=== PATIENT | male | born 1960 ===

== ENCOUNTER 2018-04-13 06:04 | Emergency (ER) | payer SELFPAY ==
[2018-04-13] MEDS ORDERED: Ketorolac INJ* 30 MG/ML 1 ML VIAL IV PUSH ONE (06:19)
[2018-04-13] MEDS ORDERED: Ondansetron INJ* 2 MG/ML VIAL IV ONE (06:19)
[2018-04-13] MEDS ORDERED: Morphine INJ* 2 MG/ML 1 ML SYRINGE (TWO MG - NEW SYRINGE VERSION) IV ONE (06:19)
[2018-04-13] MEDS ORDERED: NS 0.9% 1000 ML* 1,000 ML IV ONE ×2 (06:23→07:56)
--- NOTE | 2018-04-13 06:23 | ED ---
Abdominal Pain/Male - HPI Summary HPI Summary: Pt. is a 58 y.o male who presents to the ER for right flank and lower abd. pain that started acutely this morning. Pain is intermittently and severe. Sharp in nature. Pt. denies CP, SOB, fever, vomiting. Notes dark urine. Pt. states he has passed a kidney stone in the past and pain feels similar. Past medical history of hepatitis. Symptoms are moderate in severity. No current modifying factors. - History of Current Complaint Chief Complaint: EDAbdPain Stated Complaint: ABD PAIN Time Seen by Provider: 04/13/18 06:12 Hx Obtained From: Patient Pain Intensity: 8 - Allergies/Home Medications Allergies/Adverse Reactions: Allergies Allergy/AdvReac Type Severity Reaction Status Date / Time No Known Allergies Allergy Verified 04/13/18 07:21 PMH/Surg Hx/FS Hx/Imm Hx Previously Healthy: Yes Infectious Disease History: No Infectious Disease History: Denies: Traveled Outside the [place] in Last 30 Days - Family History Known Family History: Positive: Other - Noncontributory - Social History Occupation: Unemployed Lives: Alone Substance Use Type: Reports: None Review of Systems Constitutional: Negative Negative: Fever, Chills Cardiovascular: Negative Respiratory: Negative Positive: Abdominal Pain. Negative: Vomiting, Diarrhea, Nausea Positive: flank pain. Negative: dysuria All Other Systems Reviewed And Are Negative: Yes Physical Exam Triage Information Reviewed: Yes Vital Signs On Initial Exam: Initial Vitals Temp Pulse Resp BP Pulse Ox 97.5 F 50 20 130/85 100 04/13/18 06:05 04/13/18 06:05 04/13/18 06:05 04/13/18 06:05 04/13/18 06:05 Vital Signs Reviewed: Yes Appearance: Positive: Pain Distress - Pt. lying on stretcher moaning in pain. Nontoxic. Skin: Positive: Warm, Dry Head/Face: Positive: Normal Head/Face Inspection Eyes: Positive: Normal, EOMI Neck: Positive: Supple Abdomen Description: Positive: Nontender, Soft, Other: - Right CVA tenderness Neurological: Positive: Normal, CN Intact II-III Psychiatric: Positive: Affect/Mood Appropriate Diagnostics - Vital Signs Vital Signs Temp Pulse Resp BP Pulse Ox 04/13/18 06:05 97.5 F 50 20 130/85 100 - Laboratory Result Diagrams: 04/13/18 06:29 04/13/18 06:29 Lab Statement: Any lab studies that have been ordered have been reviewed, and results considered in the medical decision making process. Abdominal Pain Fem Course/Dx - Course Course Of Treatment: Pt. presenting for acute onset right flank pain. Suspect urolithiasis. He is afebrile with stable vital signs. Will start on IV fluids and pain medicine. Labs and CT scan ordered. 0710: After CT scan pt. pain increased and he notes initially pain medication did not help that much. 1mg of iv dilaudid was ordered. Pt.'s O2 saturation is drop and he was placed on 2L NC and it improved. Pt. has remained awake, alert and talking. IMPRESSION: CT read per radiology: 1. THERE IS A 3 X 5 MM CALCULUS PRESENT IN THE PROXIMAL RIGHT URETER CAUSING MODERATE. HYDRONEPHROSIS. THERE ARE MULTIPLE ADDITIONAL SMALL BILATERAL RENAL CALCULI. 2. BILATERAL SPONDYLOLYSIS AT THE L5 LEVEL AND GRADE 1 ANTERIOR SPONDYLOLISTHESIS AT THE. L5-S1 LEVEL. Labs and urine are unremarkable other than milldy elevated glucose and RBCs in urine. Results were discussed with pt. He continues to have 6/10 pain. I did touch base with pt.'s urology, Dr. Santiago, who states they typically do not place stent for 5mm stone and recommended trying to control pt.'s pain and if not improving he could evaluate. Plan discussed with pt. He agrees to try oral pain medication and attempt to go home for outp. urology f.u. MAIL RIDER reviewed and no red flags noted. Rx for flomax, percocet and zofran sent. Pt. to increased fluids, strain urine, call urology for f.u apt. To return to ER for uncontrollable pain, vomiting ,fever, or if concerned. Pt. understands and agrees with plan. He was dc home stable with sister. VS have returned to baseline. - Diagnoses Differential Diagnosis/HQI/PQRI: Appendicitis, Gall Bladder Disease, Hepatitis, Renal Colic, Ureteral Stone, Urinary Tract Infection Provider Diagnoses: Hydronephrosis, Urolithiasis Discharge - Sign-Out/Discharge Documenting (check all that apply): Patient Departure - Discharge Plan Condition: Good Disposition: HOME Prescriptions: Ondansetron TAB* [Zofran 4 MG Tab*] 4 mg PO Q6H PRN #12 tab PRN Reason: Nausea oxyCODONE/Acetamin 5/325 MG* [Percocet 5/325 TAB*] 1 tab PO Q6H PRN #12 tab MDD 4tablets PRN Reason: Pain Tamsulosin CAP* [Flomax CAP*] 0.4 mg PO DAILY #5 cap Patient Education Materials: Kidney Stones (ED) Referrals: No Primary Care Phys,NOPCP [Primary Care Provider] - Tristan Santiago MD [Medical Doctor] - Additional Instructions: Schedule a follow up appointment with Dr. Santiago Increase fluids Medication as directed Strain urine Return to ER for uncontrollable pain, vomiting, fever, or if concerned - Billing Disposition and Condition Condition: GOOD Disposition: Home
[2018-04-13 06:36] LABS: ABS Basophils 0.1 10^3/ul (0-0.2); ABS Eosinophils 0.1 10^3/ul (0-0.6); ABS Lymphocytes 2.2 10^3/ul (1.0-4.8); ABS Monocytes 0.5 10^3/ul (0-0.8); ABS Neutrophils 3.1 10^3/ul (1.5-7.7); ABS Nucleated RBC 0 10^3/ul; Hematocrit 41 % (42-52); Hemoglobin 14.1 g/dl (14.0-18.0); Lymphocyte % 36.4 % (25-47); Mean Corpuscular HGB Conc 34 g/dl (31-36); Mean Corpuscular Hemoglobin 30 pg (27-31); Mean Corpuscular Volume 87 fL (80-94); Nucleated Red Blood Cells % 0.1; Platelet Count 189 10^3/ul (150-450); Red Blood Count 4.72 10^6/ul (4.00-5.40); Red Cell Distribution Width 13 % (10.5-15)
[2018-04-13 06:55] LABS: EGFR Non-African American 80.5 (>60)
[2018-04-13] MEDS ORDERED: HYDROmorphone INJ* 2 MG/ML CARPUJECT SYRINGE IV SLOW PU ONE (07:09)
--- NOTE | 2018-04-13 07:39 | RAD ---
INDICATION: Right flank abdominal pain. COMPARISON: There are no relevant prior studies available for comparison. TECHNIQUE: A CT scan of the abdomen and pelvis was performed without intravenous and without oral contrast. Contiguous axial sections were obtained from the lung bases through the symphysis pubis. Images were reconstructed in the coronal and sagittal planes. FINDINGS: LUNGS: There is mild dependent bilateral lower lobe subsegmental atelectasis. No pleural effusion is present. LIVER: The liver is normal in size. No significant focal abnormality is seen on this noncontrast study. GALLBLADDER: No calcified gallstones are seen. BILE DUCTS: No intra or extrahepatic ductal distention is seen. SPLEEN: The spleen is normal in size without significant focal abnormality. PANCREAS: The pancreas is normal in size. No ductal distention or calcifications are seen. ADRENAL GLANDS: The adrenal glands are normal in size. KIDNEYS: The kidneys are normal in size. There are multiple bilateral renal calculi measuring between 1 and 5 mm. There is dilatation of the right renal calyces and proximal ureter up to the level of a 3 x 5 mm calculus which is causing moderate hydronephrosis. AORTA: The aorta is normal in caliber without significant calcific plaque. LYMPH NODES: No significantly enlarged lymph nodes are seen. BOWEL: The stomach, small and large bowel appear nondistended. The appendix is not well visualized. There is a moderate amount retained stool. There is mild sigmoid diverticulosis without evidence for diverticulitis. There is a small periumbilical hernia containing fat. PELVIC ORGANS: No bladder wall thickening or calculi are seen. The prostate gland is slightly enlarged measuring 5.1 cm in transverse dimension. PERITONEUM: No free intraperitoneal air or fluid is seen. BONES: There is bilateral spondylolysis at the L5 level and grade 1 anterior spondylolisthesis at the L5-S1 level. IMPRESSION: 1. THERE IS A 3 X 5 MM CALCULUS PRESENT IN THE PROXIMAL RIGHT URETER CAUSING MODERATE HYDRONEPHROSIS. THERE ARE MULTIPLE ADDITIONAL SMALL BILATERAL RENAL CALCULI. 2. BILATERAL SPONDYLOLYSIS AT THE L5 LEVEL AND GRADE 1 ANTERIOR SPONDYLOLISTHESIS AT THE L5-S1 LEVEL.
[2018-04-13] MEDS ORDERED: oxyCODONE/Acetamin 5/325 MG* TAB PO ONE (09:44)
[2018-04-13 10:33] LABS: Urine Appearance Cloudy; Urine Blood 3+ (Negative); Urine Color Yellow; Urine Ketones Negative (Negative); Urine Protein Negative (Negative); Urine Red Blood Cell 3+(>10/hpf) (Absent); Urine Specific Gravity 1.013 (1.010-1.030); Urine Urobilinogen Negative (Negative); Urine White Blood Cell Trace(0-5/hpf) (Absent)
[2018-04-13 10:49] VITALS: BP 126/83
== END 2018-04-13 11:01 | disposition home or self-care (01) ==
LOC: ED 06:04
DX: N13.2 Hydronephrosis with renal and ureteral calculous obstruction (principal); Z87.442 Personal history of urinary calculi
CPT/HCPCS: 36415; 74176; 80053; 81003; 81015; 85025; 87086; 96361; 96374; 96375; 99283; A9270-GY; J1170; J1885; J2270; J2405